=== PATIENT | female | born 1980 | race Caucasian/White ===

== ENCOUNTER → 2016-11-06 | Outpatient (CLI) | payer BC ==
[~2016-11-06] MED LIST: ACET1TAB43 PO; ACHYD1T PO; BENZ56AE2 TP; DOCU100C37 PO; FERR-74 PO; IBP800T PO; IBUP-1773 PO; INSU100I23 SQ; NPH,100V11 SC; PREN-115 PO
--- OUTSIDE RECORDS SUMMARY | 2016-11-06 08:29 | XMS REPORT | Continuity of Care Document ---
Author Author [facility] Organization [facility] Address Unknown Phone Unavailable Allergies Active Description Code Type Severity Reaction Onset Reported/Identified Relationship to Patient Clinical Status Yes No Known Drug Allergies [id number] Drug Allergy Unknown N/ A 09/21/2012 Medications Problems Date Dx Coded Attending Type Code Diagnosis Diagnosed By 09/22/2012 Ot 663.31 CORD ENTANGLE NEC-DELIV 09/22/2012 Ot V04.81 ND FOR PROPHYLACTIC VACCIN AND INOCULATI 09/22/2012 Ot V27.0 DELIVER-SINGLE LIVEBORN 09/16/2014 MISAEL HANDY SERVICE EMPLOYEE Ot 272.4 09/16/2014 MISAEL HANDY SERVICE EMPLOYEE Ot 626.0 09/16/2014 MISAEL HANDY SERVICE EMPLOYEE Ot 780.79 09/16/2014 CARIIMISAEL GARCIA SERVICE EMPLOYEE Ot 784.0 09/16/2014 MISAEL HANDY SERVICE EMPLOYEE Ot 790.29 02/05/2015 MISAEL HANDY SERVICE EMPLOYEE Ot 272.4 02/05/2015 OSIIMISAEL GARCIA SERVICE EMPLOYEE Ot 626.0 02/05/2015 OSIIMISAEL GARCIA SERVICE EMPLOYEE Ot 780.79 02/05/2015 OSIIMISAEL GARCIA SERVICE EMPLOYEE Ot 784.0 02/05/2015 OSIIMISAEL GARCIA SERVICE EMPLOYEE Ot 790.29 02/05/2015 OSIIMISAEL GARCIA SERVICE EMPLOYEE Ot 272.4 02/05/2015 OSIIMISAEL GARCIA SERVICE EMPLOYEE Ot 626.0 02/05/2015 OSMISAEL BENAVIDES SERVICE EMPLOYEE Ot 780.79 02/05/2015 OSIIMISAEL GARCIA SERVICE EMPLOYEE Ot 784.0 02/05/2015 OSMISAEL BENAVIDES SERVICE EMPLOYEE Ot 790.29 02/09/2015 OSIIMISAEL GARCIA SERVICE EMPLOYEE Ot 272.4 02/09/2015 MISAEL HANDY SERVICE EMPLOYEE Ot 626.0 02/09/2015 OSIIER, MISAEL Roach SERVICE EMPLOYEE Ot 780.79 02/09/2015 OSIIER, MISAEL Roach SERVICE EMPLOYEE Ot 784.0 02/09/2015 OSIIER, MISAEL Roach SERVICE EMPLOYEE Ot 790.29 05/15/2015 OSIIER, MISAEL Roach SERVICE EMPLOYEE Ot 272.4 05/15/2015 OSIIER, MISAEL Roach SERVICE EMPLOYEE Ot 626.0 05/15/2015 OSIIER, MISAEL Roach SERVICE EMPLOYEE Ot 780.79 05/15/2015 OSIIER, MISAEL Roach SERVICE EMPLOYEE Ot 784.0 05/15/2015 OSIIER, MISAEL Roach SERVICE EMPLOYEE Ot 790.29 11/02/2015 OSIIER, MISAEL Roach SERVICE EMPLOYEE Ot 272.4 11/02/2015 OSIIER, MISAEL Roach SERVICE EMPLOYEE Ot 626.0 11/02/2015 OSIIER, MISAEL Roach SERVICE EMPLOYEE Ot 780.79 11/02/2015 OSIIER, MISAEL Roach SERVICE EMPLOYEE Ot 784.0 11/02/2015 OSIIER, MISAEL Roach SERVICE EMPLOYEE Ot 790.29 11/02/2015 OSIIER, MISAEL Roach SERVICE EMPLOYEE Ot 272.4 11/02/2015 OSIIER, MISAEL Roach SERVICE EMPLOYEE Ot 626.0 11/02/2015 OSIIER, MISAEL Roach SERVICE EMPLOYEE Ot 780.79 11/02/2015 OSIIER, MISAEL Roach SERVICE EMPLOYEE Ot 784.0 11/02/2015 OSIIER, MISAEL Roach SERVICE EMPLOYEE Ot 790.29 11/03/2015 OSIIER, MISAEL Roach SERVICE EMPLOYEE Ot 272.4 11/03/2015 OSIIER, MISAEL Roach SERVICE EMPLOYEE Ot 626.0 11/03/2015 OSIIER, MISAEL Roach SERVICE EMPLOYEE Ot 780.79 11/03/2015 OSIIER, MISAEL Roach SERVICE EMPLOYEE Ot 784.0 11/03/2015 OSIIER, MISAEL Roach SERVICE EMPLOYEE Ot 790.29 11/03/2015 PASQUALE STRONG DO Ot O70.0 FIRST DEGREE PERINEAL LACERATION DURING 11/03/2015 PASQUALE STRONG DO Ot Z37.0 SINGLE LIVE 11/03/2015 PASQUALE STRONG DO Ot Z3A.39 39 WEEKS GESTATION OF 03/07/2016 OSIIMISAEL GARCIA SERVICE EMPLOYEE Ot 272.4 HYPERLIPIDEMIA NEC/NOS 03/07/2016 SMILEYMISAEL GARCIA SERVICE EMPLOYEE Ot 626.0 ABSENCE OF MENSTRUATION 03/07/2016 SMILEYMISAEL GARCIA SERVICE EMPLOYEE Ot 780.79 OTH MALAISE FATIGUE 03/07/2016 SMILEYMISAEL GARCIA SERVICE EMPLOYEE Ot 784.0 HEADACHE 03/07/2016 SMILEYMISAEL GARCIA SERVICE EMPLOYEE Ot 790.29 OTHER ABNORMAL GLUCOSE 03/07/2016 SMILEYMISAEL GARCIA SERVICE EMPLOYEE Ot 272.4 HYPERLIPIDEMIA NEC/NOS 03/07/2016 SMILEYMISAEL GARCIA SERVICE EMPLOYEE Ot 626.0 ABSENCE OF MENSTRUATION 03/07/2016 SMILEYMISAEL GARCIA VIKKI Ot 780.79 OTH MALAISE FATIGUE 03/07/2016 SMILEYMISAEL GARCIA SERVICE EMPLOYEE Ot 784.0 HEADACHE 03/07/2016 SMILEYJOSE MISAEL Roach SERVICE EMPLOYEE Ot 790.29 OTHER ABNORMAL GLUCOSE Procedures Code Description Performed By Performed On 73.59 09/21/2012 [id number] 11/02/2015 [id number] 11/02/2015 Results Encounters ACCT No. Visit Date/Time Discharge Status Pt. Type Provider Facility Loc./Unit Complaint [id number] 11/02/2015 00:28:00 2015 16:30:00 DIS Outpatient PASQUALE STRONG DO [facility] LDRP [id number] 04/07/2013 11:13:00 2012 23:59:59 CLS Outpatient MISAEL HANDY [facility] RAD [id number] 09/21/2012 09:43:00 Document Registration
--- NOTE | 2016-11-07 09:37 | ECHOCARDIOGRAPHY REPORT ---
PROCEDURE PHYSICIAN: YAMILET RIVERA DATE OF PROCEDURE: 11/06/2016 TWO DIMENSIONAL ECHOCARDIOGRAM REPORT PRIMARY PHYSICIAN: OTHER PHYSICIAN: REFERRING PHYSICIAN: Dr. Gabi Easley ORDERING PHYSICIAN: INDICATION FOR THE PROCEDURE: Chest pain. MEASUREMENTS DERIVED VALUES LV DIAMETER (LAX) NORMALS NORMALS Diastolic 4.2 (3.6-5.2) Eject. Fract. 60% (60%+/-6%) Systolic (2.3-3.9) Diastolic Vol. % Shortening (0.22-0.42) Systolic Vol. Aortic Root IVS THICKNESS Diastolic 1 (0.6-1.1) LVPW THICKNESS Diastolic 1 (0.6-1.1) LA DIAMETER Systolic 2.6 (2.1-3.7) FINDINGS: 1. Technically difficult study. 2. The left ventricle is normal in size. Endocardium was not well visualized in all segments. Overall systolic function appeared to be normal. Estimated ejection fraction 50%. 3. The left atrium is normal in size. No clot or thrombus were seen within the left atrium. 4. The right atrium and right ventricle are normal in size. No clot or thrombus were seen within the right side. 5. Mitral valve is normal in morphology with mild mitral regurgitation noted by color Doppler flow. No mitral valve prolapse. No mitral valve stenosis. 6. Aortic valve is trileaflet with normal opening and closing pattern. No significant aortic stenosis or regurgitation was seen. 7. Tricuspid valve is normal in morphology with mild tricuspid regurgitation noted by color Doppler flow. Doppler across tricuspid valve estimated pulmonary artery pressure of 4+ right atrial pressure. 8. Pulmonic valve is functioning normally. 9. No pericardial effusion. CONCLUSION: 1. Technically difficult study. 2. Normal left ventricular size. Endocardium was not well visualized in all segments. Overall systolic function appeared to be preserved. Estimated ejection fraction 50%. 3. Mild mitral and tricuspid regurgitation. 4. Estimated pulmonary artery pressure of 10 mmHg. Job ID: [id number] Dictated Date: 11/06/2016 17:27:36 Business Services Representative Date: 11/07/2016 09:34:40 / kiya
== END ==
LOC: CARD 08:26
PROVIDERS: ATTEND Internal Medicine Cardiovascular Disease
DX: R07.89 Other chest pain (principal); R00.2 Palpitations; F41.9 Anxiety disorder, unspecified
CPT/HCPCS: 93017; 93306

== ENCOUNTER → 2021-08-03 | Outpatient (CLI) | payer BC ==
[~2021-08-03] MED LIST changes: -FERR-74 PO; +FERR325T18 PO
--- NOTE | 2021-08-06 13:49 | Diagnostic Imaging Report ---
EXAMINATION: Digital mammogram bilateral screening with CAD. INDICATION: Screening. COMPARISON: This is the patient's baseline study. PERSONAL HISTORY: At this time, there are no current complaints. FINDINGS: The fibroglandular tissue in both breasts is heterogeneously dense. This does limit the sensitivity of this exam. There is no primary or secondary sign of malignancy noted. IMPRESSION: 1. There is no evidence for malignancy. 2. The patient should have her annual bilateral screening mammogram on schedule in July 2022. ACR BI-RADS Category 1: Negative. Result letter will be mailed to the patient. Note: At least 10% of breast cancer is not imaged by mammography. Dictated by: Dictated on workstation # [id number]
== END ==
LOC: RAD 08:00
PROVIDERS: ATTEND Obstetrics & Gynecology
DX: Z12.31 Encounter for screening mammogram for malignant neoplasm of breast (principal)
CPT/HCPCS: 77063; 77067

== ENCOUNTER → 2022-03-22 | Emergency (ER) | payer SELFPAY ==
[~2022-03-22] MED LIST changes: +ACET-11 PO; -ACET1TAB43 PO
== END ==
LOC: EDUNIT# 22:44 → ER 22:47
DX: R00.2 Palpitations (principal); R20.0 Anesthesia of skin

== ENCOUNTER → 2023-02-26 | Outpatient (CLI) | payer BC ==
--- NOTE | 2023-02-27 09:59 | Diagnostic Imaging Report ---
INDICATION: Routine screening. Comparison is made with prior mammogram from 08/03/2021. 2-D and 3-D bilateral screening mammography was performed with CAD. Both breasts are heterogeneously dense, limiting the sensitivity of mammography. The parenchymal pattern is stable. No mass or malignant-appearing microcalcifications are seen. Axillae are unremarkable. IMPRESSION: No mammographic features suspicious for malignancy are identified. ACR BI-RADS Category 1: Negative. Result letter will be mailed to the patient. Note: At least 10% of breast cancer is not imaged by mammography. BI-RADS Category 1 Dictated by: Dictated on workstation # [id number]
== END ==
LOC: RAD 15:30
PROVIDERS: ATTEND Internal Medicine
DX: Z12.31 Encounter for screening mammogram for malignant neoplasm of breast (principal)
CPT/HCPCS: 77063; 77067